=== PATIENT | female | born 1985 | race Caucasian/White ===

== ENCOUNTER 2016-05-08 09:41 | Emergency (ER) | payer BC ==
[~2016-05-08] VITALS: Ht 152.4 cm; Wt 47.6 kg
[2016-05-08 09:43] VITALS: BP 112/59
[2016-05-08] MEDS ORDERED: IBUPROFEN 400 MG TABLET ONE (09:54)
[2016-05-08] MEDS ORDERED: IBUPROFEN 400 MG TABLET PO ONE (10:00)
== END 2016-05-08 10:21 | disposition home or self-care (01) ==
LOC: ER 09:43
DX: S46.912A Strain of unspecified muscle, fascia and tendon at shoulder and upper arm level, left arm, initial encounter (principal); Z88.1 Allergy status to other antibiotic agents; X58.XXXA Exposure to other specified factors, initial encounter; Y93.9 Activity, unspecified; Y92.9 Unspecified place or not applicable; Y99.9 Unspecified external cause status
CPT/HCPCS: 73030; 99284; A4606; Z7610